=== PATIENT | male | born 1940 | race Two or more races ===

== ENCOUNTER 2018-06-25 15:59 | Inpatient (IN) | payer MEDICARE, OTHER ==
[~2018-06-25] VITALS: Ht 167.6 cm; Wt 47.0 kg
--- NOTE | 2018-06-25 16:05 | NUR ---
PT BIBPA FROM SNF FOR LOW BP; PT AAOX1-2, FOLLOWS SIMPLE COMMAND, PT ON MONITOR, VSS, NAD NOTED, PENDING MD BORJA
[2018-06-25] MEDS ORDERED: AMIN30LI27 PO (16:22)
[2018-06-25] MEDS ORDERED: MULT-659 PO (16:22)
[2018-06-25] MEDS ORDERED: SENN-168 PO (16:22)
[2018-06-25] MEDS ORDERED: POLY15DR40 EACHEYE (16:22)
[2018-06-25] MEDS ORDERED: ACET-868 PO (16:22)
[2018-06-25] MEDS ORDERED: DOCU-141 PO (16:22)
[2018-06-25] MEDS ORDERED: CALC500T13 PO (16:22)
[2018-06-25] MEDS ORDERED: QUET25TA PO (16:22)
[2018-06-25] MEDS ORDERED: IV NS 0.9% 1,000 ML BAG IV ONE (16:30)
[2018-06-25 16:42] LABS: BASOPHILS % (AUTO) 0.2 % (0.0-2.0); EOSINOPHILS % (AUTO) 1.5 % (0.0-6.0); HEMATOCRIT 28 % (39-51); HEMOGLOBIN 9.5 g/dL (13.5-17.5); LYMPHOCYTES # (AUTO) 2.4 /CMM (0.8-4.8); LYMPHOCYTES % (AUTO) 17.1 % (20.0-44.0); MEAN CORPUSCULAR HGB CONC 34 g/dl (31.0-36.0); MEAN CORPUSCULAR VOLUME 95 fL (80-96); MONOCYTES # (AUTO) 1.5 /CMM (0.1-1.30); MONOCYTES % (AUTO) 10.9 % (2.0-12.0); NEUTROPHILS % (AUTO) 70.3 % (43.0-81.0); PLATELET COUNT (AUTO) 380 /CMM (150-450); RED BLOOD CELL COUNT(AUTO) 2.94 MIL/uL (4.5-6.0); WHITE BLOOD COUNT (AUTO) 14.2 K/uL (4.3-11.0)
[2018-06-25 16:49] LABS: CALCIUM, SERUM 8.1 mg/dL (8.5-10.1); CARBON DIOXIDE 25 mmol/L (21-32); CHLORIDE 103 mmol/L (98-107); GLUCOSE 114 mg/dL (74-106); POTASSIUM 3.7 mmol/L (3.5-5.1); SODIUM SERUM 134 mmol/L (136-145); UREA NITROGEN, BLOOD 22 mg/dL (7-18)
[2018-06-25 16:55] LABS: ALANINE AMINOTRANSFERASE 22 U/L (12-78); ALKALINE PHOSPHATASE 168 U/L (46-116); ASPARTATE AMINOTRANSFERASE 24 U/L (15-37); BILIRUBIN,DIRECT 0.1 mg/dL (0.0-0.2); BILIRUBIN,TOTAL 0.3 mg/dL (0.2-1.0)
[2018-06-25] MEDS ORDERED: PIPERACILLIN /TAZOBACTAM 3.375 G in IV D5W 50 ML IV ONE (17:30)
[2018-06-25] MEDS ORDERED: VANCOMYCIN 1 GM in IV D5W 250 ML IV ONE (17:30)
--- NOTE | 2018-06-25 17:34 | NUR ---
AGNES MORRISON CALLED FOR TELE BED
--- NOTE | 2018-06-25 17:44 | NUR ---
TELE BED 325-1 GIVEN
[2018-06-25] MEDS ORDERED: IV NS 0.9% 1,000 ML IV PRN (18:00)
--- NOTE | 2018-06-25 18:14 | NUR ---
BED CHANGED TO 322-1
--- NOTE | 2018-06-25 18:19 | NUR ---
REPORT GIVEN TO NEVAEH RN FOR ROCK[facility]; PT WILL BE TRANSPORTED TO [facility]IA [facility]
[2018-06-25 18:39] LABS: APPEARANCE,URINE Clear (CLEAR); BILIRUBIN,URINE Negative (NEGATIVE); BLOOD, URINE Small Ery/uL (NEGATIVE); COLOR,URINE Yellow (YELLOW); KETONES,URINE Negative (NEGATIVE); LEUKOCYTE ESTERASE ,URINE Negative (NEGATIVE); NITRITE, URINE Negative (NEGATIVE); PH,URINE 5.5 (5.0-8.0); PROTEIN,URINE Trace mg/dl (NEGATIVE); UGLUCOSE Negative (NEGATIVE)
[2018-06-25 18:40] LABS: BACTERIA,URINE None seen /HPF (None Seen); RBC,URINE 0-2 /HPF (0-2); SQUAMOUS EPITHELIAL CELL,UR Few /HPF (None Seen); WBC,URINE 0-2 /HPF (0-3)
[2018-06-25 20:00] VITALS: BP 98/55
[2018-06-25] MEDS ORDERED: MAG HYDROX/AL HYDROX/SIMETH 30 ML UDC PO PRN (20:00)
[2018-06-25] MEDS ORDERED: ACETAMINOPHEN 325 MG TABLET PO PRN (20:00)
[2018-06-25] MEDS ORDERED: ONDANSETRON HCL/PF 4 MG/2 ML VIAL IVP PRN (20:00)
[2018-06-25] MEDS ORDERED: Z GUARD REMEDY 2 OZ OINT TP PRN (20:00)
[2018-06-25] MEDS ORDERED: ZOLPIDEM TARTRATE 5 MG TABLET PO PRN (20:00)
[2018-06-25] MEDS ORDERED: HYDROCODONE/APAP 5/325MG 1 EACH TABLET PO PRN (20:00)
[2018-06-25] MEDS ORDERED: MAGNESIUM HYDROXIDE 30 ML UDC PO PRN (20:00)
--- NOTE | 2018-06-25 20:00 | NUR ---
TELE/RN RECEIVE PATIENT AWAKE, ALERT, ORIENTED, COMFORTABLE, NO C/O PAIN, NO DISTRESS NOTED. ADMISSION DONE PER [facility], UNABLE TO OBTAIN HISTORY FROM THE PATIENT, NO FAMILY MEMBER AVAILABLE AT THIS TIME, INFORMATIONS WERE OBTAINED FROM THE E.R. NOTES AND SNF RECORDS. FALL PRECAUTIONS PER [facility] INSTITUTED, WILL MONITOR.
[2018-06-25] MEDS ORDERED: FEE PK DOSING 1 MIN EA MC ONE (20:36)
[2018-06-25] MEDS: IV NS 0.9% 1,000 ML IV PRN (20:40)
[2018-06-25] MEDS ORDERED: PIPERACILLIN /TAZOBACTAM 3.375 G in IV D5W 50 ML IV SCH (21:00)
[2018-06-25] MEDS: ENOXAPARIN SODIUM 40 MG/0.4 ML DISP.SYRIN SQ SCH (22:11)
--- NOTE | 2018-06-25 22:54 | NUR ---
TELE/RN CALLED [facility], SPOKE TO MARÍA GRAYSON. PER KENAN, PATIENT RECEIVED FLU AND PNA VACCIINES 01/04/2018, PATIENT AMBULATES WITH ASSIST WITH WALKER, NO EPISODE OF FALLS, ON MECH SOFT DIET, CRUSH MEDS.
[2018-06-26] VITALS: BP 92/49
[2018-06-26] MEDS ORDERED: PIPERACILLIN /TAZOBACTAM 4.5 G in IV D5W 50 ML IV SCH ×2
[2018-06-26] MEDS: PIPERACILLIN /TAZOBACTAM 3.375 G in IV D5W 50 ML IV SCH ×4 (00:49→18:01)
[2018-06-26 04:05] LABS: BASOPHILS % (AUTO) 0.4 % (0.0-2.0); EOSINOPHILS % (AUTO) 2.6 % (0.0-6.0); HEMATOCRIT 27 % (39-51); HEMOGLOBIN 9.3 g/dL (13.5-17.5); LYMPHOCYTES # (AUTO) 2.4 /CMM (0.8-4.8); LYMPHOCYTES % (AUTO) 18.9 % (20.0-44.0); MEAN CORPUSCULAR HGB CONC 34 g/dl (31.0-36.0); MEAN CORPUSCULAR VOLUME 95 fL (80-96); MONOCYTES # (AUTO) 1.1 /CMM (0.1-1.30); MONOCYTES % (AUTO) 9.1 % (2.0-12.0); NEUTROPHILS # (AUTO) 8.7 /CMM (1.8-8.9); PLATELET COUNT (AUTO) 385 /CMM (150-450); RED BLOOD CELL COUNT(AUTO) 2.89 MIL/uL (4.5-6.0); WHITE BLOOD COUNT (AUTO) 12.6 K/uL (4.3-11.0)
[2018-06-26 04:22] LABS: ALANINE AMINOTRANSFERASE 16 U/L (12-78); ALBUMIN 1.9 g/dL (3.4-5.0); ALKALINE PHOSPHATASE 143 U/L (46-116); ASPARTATE AMINOTRANSFERASE 20 U/L (15-37); BILIRUBIN,TOTAL 0.5 mg/dL (0.2-1.0); CALCIUM, SERUM 7.9 mg/dL (8.5-10.1); CARBON DIOXIDE 23 mmol/L (21-32); CHLORIDE 105 mmol/L (98-107); CREATININE 0.8 mg/dL (0.6-1.3); GLUCOSE 98 mg/dL (74-106); MAGNESIUM 1.8 mg/dL (1.8-2.4); PHOSPHORUS 2.8 mg/dL (2.5-4.9); POTASSIUM 3.8 mmol/L (3.5-5.1); SODIUM SERUM 138 mmol/L (136-145); TOTAL PROTEIN, SERUM 6.4 g/dL (6.4-8.2); UREA NITROGEN, BLOOD 13 mg/dL (7-18)
[2018-06-26 04:28] LABS: CHOLESTEROL 93 mg/dL (<200); HDL CHOLESTEROL 21 mg/dL (40-60); LDL 60 mg/dL (0-99); THYROID STIMULATING HORMONE 1.113 uIU/mL (0.358-3.74); TRIGLYCERIDES 101 mg/dL (30-150)
--- NOTE | 2018-06-26 06:47 | NUR ---
TELE/RN PATIENT IS AWAKE, ALERT, COMFORTABLE, NO DISTSRESS NOTED, NPO, IVF INFUSING WELL, ALL NEEDS ATTENDED AT THIS TIME, WILL CONTINUE TO MONITOR.
[2018-06-26 08:00] VITALS: BP 90/52
[2018-06-26 12:00] VITALS: BP 100/50
[2018-06-26] MEDS: IV NS 0.9% 1,000 ML IV PRN (12:11)
[2018-06-26] MEDS: VANCOMYCIN 1 GM in IV D5W 250 ML IV SCH (13:43)
[2018-06-26 16:00] VITALS: BP 111/51
--- NOTE | 2018-06-26 17:26 | NUR ---
RN NOTES RECEIVED MULTIPLE CALLS FROM FAMILY MEMBER (DAUGHTER) REGARDING PATIENT';S FEELINGS REGARDING CARE BEING PROVIDED. MAJOR C /O NO FOOD (npo ) STATUS OF PT. PT'S FAMILY IS INSISTENT THAT PT BE FED REGULAR DIET PO FOOD. EDUCATION PERFORMED MULTIPLE TIMES, A GROUP AND INDIVIDUALLY. HOWEVER LEARNING BARRIER EVIDENT, PT AND FAMILY RESISTANT TO EDUCATION PROVIDED AND JUSTIFICATIONS FOR NPO STATUS. STATING "IM GONNA FEED MY DAD NO MATTER WHAT." SUCTION EQUIPMENT BROUGHT BEDSIDE, WITH ONE FINAL WARNING GIVEN. WILL CONTINUE TO MONITOR FOR HIGH RISK ASPIRATION.
--- NOTE | 2018-06-26 19:30 | NUR ---
MS/RN RECEIVE PATIENT APPEAR SLEEPING, COMFORTABLE, NO SIGNS OF DISTRESS NOTED, BREATHING EVEN AND UNLABORED, CALL LIGHT IN REACH. WILL MONITOR.
[2018-06-26 20:14] VITALS: BP 93/50
[2018-06-26] MEDS: ENOXAPARIN SODIUM 40 MG/0.4 ML DISP.SYRIN SQ SCH (21:37)
--- NOTE | 2018-06-26 23:46 | NUR ---
MS/RN PATIENT IS SLEEPING, AROUSABLE, APPEAR COMFORTABLE, NO SIGNS OF DISTRESS NOTED, CALL LIGHT IN REACH. WILL CONTINUE TO MONITOR.
[2018-06-27] MEDS: PIPERACILLIN /TAZOBACTAM 3.375 G in IV D5W 50 ML IV SCH ×5 (00:02→23:05)
--- NOTE | 2018-06-27 06:09 | NUR ---
MS/RN PATIENT IS STILL SLEEPING AT THIS TIME, AROUSES EASILY, APPEAR COMFORTABLE, NO DISTRERSS NOTED, ALL NEEDS ATTENDED AT THIS TIME, WILL CONTINUE TO MONITOR.
[2018-06-27] MEDS: VANCOMYCIN 1 GM in IV D5W 250 ML IV SCH (06:47)
--- NOTE | 2018-06-27 07:30 | NUR ---
RN MS OPENING NOTES Received patient on room air, no sob or ventilatory distress noted. Patient appears to be free of pain and is lying down comfortably. Will continue to monitor patient.
[2018-06-27 07:40] LABS: CARBON DIOXIDE 22 mmol/L (21-32); CHLORIDE 108 mmol/L (98-107); CREATININE 0.9 mg/dL (0.6-1.3); GLUCOSE 106 mg/dL (74-106); POTASSIUM 3.6 mmol/L (3.5-5.1); SODIUM SERUM 140 mmol/L (136-145); UREA NITROGEN, BLOOD 9 mg/dL (7-18)
[2018-06-27 07:49] LABS: BASOPHILS # (AUTO) 0.1 /CMM (0.0-0.2); BASOPHILS % (AUTO) 0.7 % (0.0-2.0); EOSINOPHILS % (AUTO) 2.6 % (0.0-6.0); HEMATOCRIT 28 % (39-51); HEMOGLOBIN 9.5 g/dL (13.5-17.5); LYMPHOCYTES # (AUTO) 2.7 /CMM (0.8-4.8); LYMPHOCYTES % (AUTO) 25.7 % (20.0-44.0); MEAN CORPUSCULAR HGB CONC 34 g/dl (31.0-36.0); MEAN CORPUSCULAR VOLUME 95 fL (80-96); MONOCYTES # (AUTO) 0.9 /CMM (0.1-1.30); MONOCYTES % (AUTO) 8.8 % (2.0-12.0); NEUTROPHILS # (AUTO) 6.7 /CMM (1.8-8.9); NEUTROPHILS % (AUTO) 62.2 % (43.0-81.0); PLATELET COUNT (AUTO) 407 /CMM (150-450); RED BLOOD CELL COUNT(AUTO) 2.92 MIL/uL (4.5-6.0); WHITE BLOOD COUNT (AUTO) 10.7 K/uL (4.3-11.0)
[2018-06-27 08:00] VITALS: BP 97/51
[2018-06-27] MEDS: IV NS 0.9% 1,000 ML IV PRN (09:44)
[2018-06-27 15:52] VITALS: BP 103/54
--- NOTE | 2018-06-27 18:51 | NUR ---
RN CLOSING MS NOTES Patient remains on room air, no sob or ventilatory distress noted. Patient lies down calm and pain free. Patient's diet is now pureed diet only per speech therapist. Vital signs remain stable all shift, call light within reach, safety measures in place. Will continue to monitor patient.
--- NOTE | 2018-06-27 19:46 | NUR ---
ms/rn opening notes RECEIVED PATIENT IN BED, RESTING COMFORTABLY IN BED, ON ROOM AIR, NO GUARDING OR GRIMACE, SKIN WARM TO TOUCH, ON DIAPER, REQUIRE ASSISTANCE FOR SAFETY, BED LOCKED, BED ALARM ON, CALL LIGHTS WITHIN REACH, ABLE TO VERBALIZE NEEDS, HEBREW SPEAKING, LFA GAUGE 20 IV, WITH NO S/S OF INFILTRATION, MONITORING FOR HYPOTENSION, ASPIRATIONS PRECAUTION TO CONTINUE MONITORING.
[2018-06-27 19:57] VITALS: BP 115/58
[2018-06-27 20:00] VITALS: BP 115/58
[2018-06-27] MEDS: ENOXAPARIN SODIUM 40 MG/0.4 ML DISP.SYRIN SQ SCH (20:57)
--- NOTE | 2018-06-28 00:29 | NUR ---
MS/RN NOTES VANCO TROUGH DONE BY LAB TO F/U RESULT AND ADMINISTER VANCO IF TROUGH LEVEL IN RANGE.
[2018-06-28] MEDS: VANCOMYCIN 1 GM in IV D5W 250 ML IV SCH (01:11)
[2018-06-28] MEDS: PIPERACILLIN /TAZOBACTAM 3.375 G in IV D5W 50 ML IV SCH ×2 (05:01→11:48)
--- NOTE | 2018-06-28 06:52 | NUR ---
314-1 MS/RN NOTES 'PATIENT ABLE TO SLEEP DURING THE NIGHT, RESTING COMFORTABLY, REQUIRE ASSISTANCE, OFFERED FOOD. KEPT COMFORTABLE. BED LOCKED, CALL LIGHTS WITHIN REACH, WILL MONITOR.WILL ENDORSE TO AM RN FOR ROCKY.
[2018-06-28 08:00] VITALS: BP 107/56
[2018-06-28 08:05] LABS: BASOPHILS # (AUTO) 0.1 /CMM (0.0-0.2); BASOPHILS % (AUTO) 0.7 % (0.0-2.0); EOSINOPHILS % (AUTO) 3.8 % (0.0-6.0); HEMATOCRIT 30 % (39-51); HEMOGLOBIN 10.2 g/dL (13.5-17.5); LYMPHOCYTES # (AUTO) 2.8 /CMM (0.8-4.8); MEAN CORPUSCULAR HGB CONC 34 g/dl (31.0-36.0); MEAN CORPUSCULAR VOLUME 95 fL (80-96); MONOCYTES # (AUTO) 0.7 /CMM (0.1-1.30); MONOCYTES % (AUTO) 8.7 % (2.0-12.0); NEUTROPHILS # (AUTO) 4.5 /CMM (1.8-8.9); NEUTROPHILS % (AUTO) 53.8 % (43.0-81.0); PLATELET COUNT (AUTO) 466 /CMM (150-450); RED BLOOD CELL COUNT(AUTO) 3.17 MIL/uL (4.5-6.0); WHITE BLOOD COUNT (AUTO) 8.4 K/uL (4.3-11.0)
[2018-06-28 08:09] LABS: CALCIUM, SERUM 8.2 mg/dL (8.5-10.1); CARBON DIOXIDE 23 mmol/L (21-32); CHLORIDE 107 mmol/L (98-107); CREATININE 0.9 mg/dL (0.6-1.3); GLUCOSE 101 mg/dL (74-106); POTASSIUM 3.4 mmol/L (3.5-5.1); SODIUM SERUM 140 mmol/L (136-145); UREA NITROGEN, BLOOD 8 mg/dL (7-18)
[2018-06-28] MEDS ORDERED: LEVO750T21 PO (09:01)
--- NOTE | 2018-06-28 09:02 | NUR ---
RN MS OPENING NOTES Patient received on room air, no sob or ventilatory distress noted. Patient a/o x4, mostly croatian speaking but speaks minimal salvadorean. Vital signs stable. Patient has discharge instructions at this time. Patients call light within reach, safety measures in place.
[2018-06-28] MEDS ORDERED: POTASSIUM CHLORIDE 20 MEQ POWDER PACKET PO SCH (11:30)
--- NOTE | 2018-06-28 14:34 | NUR ---
RN CLOSING NOTES Patient left facility with ambulance back to [facility], patient left on room air, no sob or ventilatory distress noted. Patient's vital signs normal at the time of his transfer. No bleeding or swelling noted on his IV line that was removed prior to discharge.
--- NOTE | 2018-06-28 14:34 | NUR ---
RN MS NOTES REPORT GIVEN TO ADMITTING NURSE SAÚL DANIEL AT [facility], PT BELONGINGS ACCOUNTED FOR, PT'S CLOTHES BROUGHT HOME BY SON LUTHER, PT PICKED UP BY 2 AMBULANCE PERSONNEL, LEFT VIA GUERNEY, IN STABLE CONDITION,
== END 2018-06-28 14:44 | DRG 871 ==
LOC: ER 16:01 → TELE 17:51 → MED 06-26 20:59
PROVIDERS: ADMIT Internal Medicine; ATTEND Family Medicine
DX: A41.9 Sepsis, unspecified organism (principal); G93.41 Metabolic encephalopathy; N17.0 Acute kidney failure with tubular necrosis; E43 Unspecified severe protein-calorie malnutrition; J15.6 Pneumonia due to other Gram-negative bacteria; J15.9 Unspecified bacterial pneumonia; E87.1 Hypo-osmolality and hyponatremia; D63.8 Anemia in other chronic diseases classified elsewhere; F03.90 Unspecified dementia, unspecified severity, without behavioral disturbance, psychotic disturbance, mood disturbance, and anxiety; F20.9 Schizophrenia, unspecified; K21.9 Gastro-esophageal reflux disease without esophagitis; E86.1 Hypovolemia; E11.9 Type 2 diabetes mellitus without complications
CPT/HCPCS: 36415; 71045-TC; 80048-TC; 80053-TC; 80061-TC; 80076-TC; 80202-TC; 81000-TC; 83605-TC; 83735-TC; 84100-TC; 84443-TC; 84484-TC; 85025-TC; 85730-TC; 87040-TC; 87081-TC; 87086-TC; 87400; 92611-TC; 97116-TC; 97530-TC; G0378; J1650; J2543; J3370; J7030; J7060